=== PATIENT | male | born 2000 | race African-American/Black ===

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

== ENCOUNTER 2020-05-11 14:42 | Emergency (ER) | payer BC ==
[~2020-05-11] VITALS: Ht 182.9 cm; Wt 95.4 kg
[2020-05-11] MEDS ORDERED: DEXAMETHASONE 4 MG TABLET PO ONE (18:45)
[2020-05-11] MEDS ORDERED: ALBUTEROL SULFATE 2.5 MG/3 ML NEBU. NEB ONE (18:45)
--- NOTE | 2020-05-11 18:54 | PHYS DOC ---
Past Medical History Past Medical History: Asthma, Other Additional Past Medical Histor: R shoulder dislocation Past Surgical History: Other Additional Past Surgical Histo: hernia Smoking Status: Current Every Day Smoker Alcohol Use: Occasionally Drug Use: None General Adult EDM: Chief Complaint: SHORTNESS OF BREATH HPI: HPI: Patient is a 19 year old male who presents with 2 days of cough, shortness of air, runny nose, wheezing. He states that his sister is an asthmatic and he took one of her medications that she uses but he does not know what it is. He states that he does have asthma and he does smoke. He also has allergies and was around a dog that he is allergic to couple days prior. He states he was hanging out with 1 girl that he thought maybe he caught Covid from but her test came back negative. Patient denies abdominal pain, nausea, vomiting, diarrhea, fever, headache, dizziness, chest pain, numbness or tingling, focal weakness, vision changes, syncope. Review of Systems: Review of Systems: Constitutional: Denies fever or chills. [] Eyes: Denies change in visual acuity. [] HENT: + nasal congestion or +sore throat. [] Respiratory: + cough or +shortness of breath. [] Cardiovascular: Denies chest pain or edema. [] GI: Denies abdominal pain, nausea, vomiting, bloody stools or diarrhea. [] : Denies dysuria. [] Musculoskeletal: Denies back pain or joint pain. [] Integument: Denies rash. [] Neurologic: Denies headache, focal weakness or sensory changes. [] Endocrine: Denies polyuria or polydipsia. [] Lymphatic: Denies swollen glands. [] Psychiatric: Denies depression or anxiety. [] Heart Score: Risk Factors: Risk Factors: DM, Current or recent (<one month) smoker, HTN, HLP, family history of CAD, obesity. Risk Scores: Score 0 - 3: 2.5% MACE over next 6 weeks - Discharge Home Score 4 - 6: 20.3% MACE over next 6 weeks - Admit for Clinical Observation Score 7 - 10: 72.7% MACE over next 6 weeks - Early Invasive Strategies Current Medications: Current Medications Medications (Trade) Dose Ordered Sig/Tao Start Time Stop Time Status Last Admin Dose Admin Albuterol Sulfate (Ventolin Neb Soln) 2.5 mg 1X ONCE 05/11/20 18:45 05/11/20 18:46 DC Dexamethasone (Decadron) 10 mg 1X ONCE 05/11/20 18:45 05/11/20 18:46 DC Allergies: Allergies: Allergies Coded Allergies Type Severity Reaction Last Updated Verified No Known Drug Allergies 03/29/16 No Physical Exam: PE: Constitutional: Well developed, well nourished, no acute distress, non-toxic appearance. [] HENT: Normocephalic, atraumatic, bilateral external ears normal, oropharynx moist, no oral exudates, nose normal. [] Eyes: PERRLA, EOMI, conjunctiva normal, no discharge. [] Neck: Normal range of motion, no tenderness, supple, no stridor. [] Cardiovascular:Heart rate regular rhythm, no murmur [] Lungs & Thorax: Bilateral inspiratory and expiratory wheezing breath sounds clear to auscultation [] Abdomen: Bowel sounds normal, soft, no tenderness, no masses, no pulsatile masses. [] Skin: Warm, dry, no erythema, no rash. [] Back: No tenderness, no CVA tenderness. [] Extremities: No tenderness, no cyanosis, no clubbing, ROM intact, no edema. [] Neurologic: Alert and oriented X 3, normal motor function, normal sensory function, no focal deficits noted. [] Psychologic: Affect normal, judgement normal, mood normal. [] Current Patient Data: Vital Signs: Vital Signs Date Time Temp Pulse Resp B/P (MAP) Pulse Ox O2 Delivery O2 Flow Rate FiO2 05/11/20 17:22 98.6 95 24 157/80 (105) 95 Room Air 98.6 EKG: EKG: [] Radiology/Procedures: Radiology/Procedures: [] Impression: [facility] [address] [place], [place] [id number] IMAGING REPORT Signed PATIENT: NICOLE BERMEO ACCOUNT: [id number] : 2000 LOCATION: ER AGE: 19 SEX: M EXAM STATUS: REG ER ORD. PHYSICIAN: GABE HUGO APRN REASON: soa PROCEDURE: PORTABLE CHEST 1V EXAMINATION: XR CHEST 1V CLINICAL HISTORY: Shortness of breath EXAM DATE/TIME: 05/11/2020 7:06 PM COMPARISON: None FINDINGS: Lines, Tubes, and Devices: None. Cardiomediastinal Silhouette: Within normal limits. Lungs and Pleura: No evidence of focal airspace consolidation or pleural effusion. Pulmonary vasculature unremarkable. Bones and Soft Tissues: No acute osseous abnormality. IMPRESSION: No evidence of acute cardiopulmonary abnormality. Electronically signed by: Eliel Trevizo DO (05/11/2020 7:17 PM) [facility] DICTATED and SIGNED BY: ELIEL TREVIZO DO DATE: 05/11/20 [id number] 0 Course & Med Decision Making: Course & Med Decision Making Pertinent Labs and Imaging studies reviewed. (See chart for details) COVID-19 CRITERIA: The patient was evaluated during the global COVID-19 pandemic, and that diagnosis was suspected/considered upon their initial presentation. Their evaluation, treatment and testing was consistent with current guidelines for patients who present with complaints or symptoms that may be related to COVID-19. See HPI. Alert and oriented x4. Patient has inspiratory expiratory wheezing throughout all lobes of the lungs. Abdomen soft and nontender. Skin pink warm and dry. Speaks in full complete sentences. Patient is 95% on room air. Throat is pink without exudates or swelling. Afebrile. Patient is given dexamethasone and a breathing treatment in the ED. I we will also test the patient for Covid in the ED. Patient states he is feeling much better. He will be sent home with a Medrol Dosepak, albuterol inhaler and Zyrtec. [] William Disclaimer: William Disclaimer: This electronic medical record was generated, in whole or in part, using a voice recognition dictation system. COVID-19 Patient Risks: Age 65 or older: No Sign of co-morbidity: Yes Exp to person + for COVID: No Exp to PUI: No Travel from affected area: No Lower respiratory symptoms: Yes Fever: No Other: No PPE Use: Full PPE with N95 mask or PAPR: Yes Departure Departure Impression: Primary Impression: Acute asthma flare Qualified Codes: J45.21 - Mild intermittent asthma with (acute) exacerbation Disposition: 01 DC HOME SELF CARE/HOMELESS Condition: STABLE Referrals: NO PCP (PCP) Patient Instructions: Asthma Attacks, Prevention, Asthma Prevention-Brief, Asthma, Adult Additional Instructions: Take medication as prescribed. Try to quit smoking. Drink plenty of fluids. If you begin having severe shortness of breath and the medicines are not helping return to emergency room. You have been tested for or diagnosed with COVID-19. It is an infection caused by a new type of coronavirus. COVID-19 will cause cold-like or mild flu symptoms in most. It can cause more severe symptoms like problems breathing in some. There is no treatment for COVID-19. The body will clear the infection over time. Self-care will help to ease discomfort. Steps to Take: Self-Care Rest as needed. Healthy habits may help you feel better. Steps include: Choose healthy foods including fruits and vegetables. Drink water throughout the day. Get plenty of sleep each night. If you smoke, try to quit. It may ease breathing. Avoid alcohol. Keep Others Healthy The virus can spread to others. Droplets are released every time you sneeze or cough. The droplets can get into the mouth, nose, or eyes of people near you and lead to infection. To lower the chances of spreading COVID-19 to others: Stay at home until your doctor has said it is safe to leave. If you tested positive this will mean staying isolated until both of the following are true: At least 7 days have passed since the start of illness. You are free of fever for at least 72 hours without the use of medicine. During this time: - Avoid public areas, events, or transportation. Do not return to work or school until your doctor has said it is safe to do so. - Call ahead if you need to go to a medical center. Let them know you may have COVID-19. It will help them guide you where to go. They may also ask you to wear a facemask when you come to the office. - If you call for emergency medical services, let them know you may have COVID- 19. While at home: - Try to avoid close contact with others. Stay about 6 feet away. - If possible, spend most of your time in a separate room from others. - Use a face mask if you will be in close contact with others such as sharing a room or vehicle. - Have someone wipe down common surfaces in the home. Use household scene and lighting design lecturer every day on areas like doorknobs, counters, or sinks. - Cough or sneeze into a tissue. Throw the tissue away right after use. If a tissue is not available, cough or sneeze into your elbow. - Wash your hands often. Wash them after sneezing or coughing. Use soap and water and wash for at least 20 seconds. Alcohol based hand sewer pipe cleaner can be used if soap and water is not available. - Do not prepare food for others. Avoid sharing personal items like forks, spoons, or toothbrushes. - Avoid close contact with pets while you are sick. There is no evidence of the virus passing to pets. This is a safety step until more is known about this virus. Isolation can be frustrating. Social interaction can help. Keep in touch with friends and family through phone and tech options. You can still interact with others in yo ur home, just keep a safe distance of about 6 feet. Follow-up: Your doctors office will check in with you to see if there are any changes in your health. You may be asked to keep track of symptoms to share with them. They will also let you know when you are clear to be in public again. Problems to Look Out For: Contact your doctor if your recovery is not going as you expect. Get emergency care if you have problems such as: - Trouble breathing - Nonstop chest pain or pressure - Changes in awareness, confusion, or problems waking - Lips or face have bluish color - Worsening of symptoms If you think you have an emergency, call for emergency medical services right away. As taken from [facility] Cetirizine Hcl (ZYRTEC) 10 Mg Tablet 1 TAB PO DAILY, #30 TAB 0 Refills Prov: GABE HUGO CSR 05/11/20 Methylprednisolone (MEDROL) 4 Mg Tab.ds.pk 1 PKG PO UD, #1 PKG Prov: GABE HUGO CSR 05/11/20 Albuterol Sulfate (PROAIR HFA INHALER) 8.5 Gm Hfa.aer.ad 1 PUFF INH PRN Q6HRS PRN for SHORTNESS OF BREATH, #1 INHALER 0 Refills Prov: GABE HUGO CSR 05/11/20 GABE HUGO CSR May 11, 2020 18:54
--- NOTE | 2020-05-11 19:19 | RAD ---
EXAMINATION: XR CHEST 1V CLINICAL HISTORY: Shortness of breath EXAM DATE/TIME: 05/11/2020 7:06 PM COMPARISON: None FINDINGS: Lines, Tubes, and Devices: None. Cardiomediastinal Silhouette: Within normal limits. Lungs and Pleura: No evidence of focal airspace consolidation or pleural effusion. Pulmonary vasculat ure unremarkable. Bones and Soft Tissues: No acute osseous abnormality. IMPRESSION: No evidence of acute cardiopulmonary abnormality. Electronically signed by: Eliel Tapia DO (05/11/2020 7:17 PM) [facility]
[2020-05-11 19:23] LABS: BASO # 0.1 x10^3/uL (0.0-0.2); BASO % 1 % (0-3); EOS # 1.2 x10^3/uL (0.0-0.7); EOS % 8 % (0-3); HEMATOCRIT 49.1 % (39.0-53.0); HEMOGLOBIN 17.4 g/dL (13.0-17.5); LYMPH # 2.3 x10^3/uL (1.0-4.8); LYMPH % 16 % (24-48); MEAN CORPUSCULAR HEMOGLOBIN 31 pg (25-35); MEAN CORPUSCULAR HGB CONC 35 g/dL (31-37); MEAN CORPUSCULAR VOLUME 88 fL (79-100); MONO # 1.5 x10^3/uL (0.0-1.1); MONO % 11 % (0-9); NEUT # 9.2 x10^3/uL (1.8-7.7); NEUT % 65 % (31-73); PLATELET COUNT 259 x10^3/uL (140-400); RED BLOOD COUNT 5.57 x10^6/uL (4.30-5.70); WHITE BLOOD COUNT 14.3 x10^3/uL (4.0-11.0)
[2020-05-11 19:30] LABS: CALCIUM 9.3 mg/dL (8.5-10.1); CREATININE 1.1 mg/dL (0.7-1.3); GFR 103.3; POTASSIUM 3.9 mmol/L (3.5-5.1)
[2020-05-11] MEDS ORDERED: ALBUTEROL SULFATE 8GM INHALER. INH ONE (19:30)
[2020-05-11 19:36] LABS: ALBUMIN 4.1 g/dL (3.4-5.0); ALBUMIN/GLOBULIN RATIO 0.9 (1.0-1.7); TOTAL BILIRUBIN 0.7 mg/dL (0.2-1.0); TOTAL PROTEIN 8.5 g/dL (6.4-8.2)
[2020-05-11 19:50] LABS: % BANDS 2 % (0-9); % BASOS 1 % (0-3); % EOS 5 % (0-5); % LYMPHS 17 % (24-48); % MONOS 12 % (0-10); % SEGS 63 % (35-66); PLT ESTIMATE ADEQUATE (ADEQUATE)
[2020-05-11] MEDS ORDERED: CETI10TA74 PO (20:15)
[2020-05-11] MEDS ORDERED: ALBU2.5V8 INH (20:15)
[2020-05-11] MEDS ORDERED: METH4TAB2 PO (20:15)
[2020-05-11 20:30] VITALS: BP 135/75
--- NOTE | 2020-05-13 16:27 | NUR ---
IP: Attempted to contact pt concerning COVID results. No answer. Left a voicemail to return the call.
--- NOTE | 2020-05-14 08:54 | NUR ---
IP: Pt called and I gave him the negative COVID results. Pt verbalized understanding.
== END 2020-05-11 20:35 | disposition home or self-care (01) ==
LOC: ER 14:42
DX: J45.21 Mild intermittent asthma with (acute) exacerbation (principal); F17.200 Nicotine dependence, unspecified, uncomplicated; Z20.828 Contact with and (suspected) exposure to other viral communicable diseases
CPT/HCPCS: 36415; 71045; 80053; 85007; 85025; 85379; 99285; C9803; J7613; U0003

== ENCOUNTER 2020-05-28 09:51 | Emergency (ER) | payer BC ==
[~2020-05-28] VITALS: Ht 182.9 cm; Wt 97.7 kg
[~2020-05-28 09:51] MED LIST changes: +ALBU2.5V8 INH; +CETI10TA74 PO; +METH4TAB2 PO
[2020-05-28] MEDS ORDERED: PROPOFOL 10 MG/ML (20ML) VIAL. IV ONE (10:30)
[2020-05-28] MEDS ORDERED: ONDANSETRON PF 4 MG/2 ML VIAL. IVP ONE (10:30)
[2020-05-28] MEDS ORDERED: IV NORMAL SALINE 1000ML BAG 1,000 ML IV ONE (10:30)
--- NOTE | 2020-05-28 10:39 | PHYS DOC ---
Past Medical History Past Medical History: Asthma, Other Additional Past Medical Histor: R shoulder dislocation Past Surgical History: Other Additional Past Surgical Histo: hernia Smoking Status: Current Every Day Smoker Alcohol Use: Occasionally Drug Use: None General Adult EDM: Chief Complaint: SHOULDER INJURY HPI: HPI: Patient is a 19 year old male who presented to ER for evaluation of right shoulder dislocation. Patient has a history of recurrent right shoulder dislocation, this morning he had a an episode of sneeze, then dislocated his right shoulder. Patient denies any numbness or weakness in his right upper extremity at this time. Review of Systems: Review of Systems: Constitutional: Denies fever or chills. [] Eyes: Denies change in visual acuity. [] HENT: Denies nasal congestion or sore throat. [] Respiratory: Denies cough or shortness of breath. [] Cardiovascular: Denies chest pain or edema. [] GI: Denies abdominal pain, nausea, vomiting, bloody stools or diarrhea. [] : Denies dysuria. [] Musculoskeletal: Positive for right shoulder pain Integument: Denies rash. [] Neurologic: Denies headache, focal weakness or sensory changes. [] Endocrine: Denies polyuria or polydipsia. [] Lymphatic: Denies swollen glands. [] Psychiatric: Denies depression or anxiety. [] Heart Score: Risk Factors: Risk Factors: DM, Current or recent (<one month) smoker, HTN, HLP, family history of CAD, obesity. Risk Scores: Score 0 - 3: 2.5% MACE over next 6 weeks - Discharge Home Score 4 - 6: 20.3% MACE over next 6 weeks - Admit for Clinical Observation Score 7 - 10: 72.7% MACE over next 6 weeks - Early Invasive Strategies Current Medications: Current Medications Medications (Trade) Dose Ordered Sig/Tao Start Time Stop Time Status Last Admin Dose Admin Ondansetron HCl (Zofran) 4 mg 1X ONCE 05/28/20 10:30 05/28/20 10:32 DC Propofol (Diprivan) 100 mg 1X ONCE 05/28/20 10:30 05/28/20 10:32 DC Sodium Chloride 1,000 ml @ 1,000 mls/hr 1X ONCE 05/28/20 10:30 05/28/20 11:29 Allergies: Allergies: Allergies Coded Allergies Type Severity Reaction Last Updated Verified No Known Drug Allergies 03/29/16 No Physical Exam: PE: Constitutional: Well developed, well nourished, no acute distress, non-toxic appearance. [] HENT: Normocephalic, atraumatic, bilateral external ears normal, oropharynx moist, no oral exudates, nose normal. [] Eyes: PERRLA, EOMI, conjunctiva normal, no discharge. [] Neck: Normal range of motion, no tenderness, supple, no stridor. [] Cardiovascular:Heart rate regular rhythm, no murmur [] Lungs & Thorax: Bilateral breath sounds clear to auscultation [] Abdomen: Bowel sounds normal, soft, no tenderness, no masses, no pulsatile masses. [] Skin: Warm, dry, no erythema, no rash. [] Back: No tenderness, no CVA tenderness. [] Extremities: Right shoulder is tender to palpation, range of motion limited, deformity consistent with anterior dislocation. Neurologic: Alert and oriented X 3, normal motor function, normal sensory function, no focal deficits noted. [] Psychologic: Affect normal, judgement normal, mood normal. [] Current Patient Data: Vital Signs: Vital Signs Date Time Temp Pulse Resp B/P (MAP) Pulse Ox O2 Delivery O2 Flow Rate FiO2 05/28/20 10:07 98.5 77 18 156/116 (129) 95 Room Air 98.5 EKG: EKG: [] Radiology/Procedures: Radiology/Procedures: [facility] [address] [place] [address] IMAGING REPORT Signed PATIENT: NICOLE BERMEO ACCOUNT: [id number] : 2000 LOCATION: ER AGE: 19 SEX: M EXAM STATUS: REG ER ORD. PHYSICIAN: DEEPTI CRAIN DO REASON: RIGHT SHOULDER DISLOCATION PROCEDURE: SHOULDER 2+V RIGHT XR SHOULDER_RIGHT 2+ VIEWS History: Reason: RIGHT SHOULDER DISLOCATION / Spl. Instructions: / History: Technique: 2 views right shoulder. Comparison: November 07, 2018 Findings: Right anterior inferior glenohumeral dislocation. Irregularity of the inferior glenoid. Impression: 1. Right anterior inferior glenohumeral dislocation. 2. Irregularity of the inferior glenoid, may indicate Bankart lesion. Recommend post reduction radiographs to further assess. Electronically signed by: Zak Boggs DO (05/28/2020 11:04 AM) [id number] DICTATED and SIGNED BY: ZAK BOGGS DO DATE: 05/28/20 [id number] 0 SHOULDER DISLOCATION REDUCTION PROCEDURE: Indication: Joint dislocation Consent: Consent was obtained. Procedure: The pre-reduction exam showed distal perfusion and neurologic function to be normal.. The patient was placed in the appropriate position. IV PROPOFOL WAS GIVEN. Reduction of the right shoulder was performed by traction and rotation Post reduction films were obtained and revealed satisfactory reduction. A post-reduction exam revealed distal perfusion and neurologic function to be normal. The affected area was immobilized with shoulder immobilizer. The patient tolerated the procedure well. Complications: none. [facility] [address] [place] [address] IMAGING REPORT Signed PATIENT: NICOLE BERMEO ACCOUNT: [id number] : 2000 LOCATION: ER AGE: 19 SEX: M EXAM STATUS: REG ER ORD. PHYSICIAN: DEEPTI CRAIN DO REASON: POST REDUCTION OF RIGHT SHOULDER DISLOCATION PROCEDURE: SHOULDER 2+V RIGHT XR SHOULDER_RIGHT 2+ VIEWS History: Reason: POST REDUCTION OF RIGHT SHOULDER DISLOCATION / Spl. Instructions: / History: Technique: 2 views right shoulder. Comparison: May 28, 2020 Findings: Interval reduction right glenohumeral dislocation. Irregularity of the inferior glenoid. Irregularity of the posterior lateral humeral head. Impression: 1. Interval reduction right glenohumeral dislocation. 2. Irregularity of the inferior glenoid and posterior lateral humeral head, may indicate Bankart and Hill-Sachs lesions. Electronically signed by: Zak Boggs DO (05/28/2020 11:15 AM) [id number] DICTATED and SIGNED BY: ZAK BOGGS DO DATE: 05/28/20 [id number] 0 Course & Med Decision Making: Course & Med Decision Making Pertinent Labs and Imaging studies reviewed. (See chart for details) [] Dragon Disclaimer: Dragon Disclaimer: This electronic medical record was generated, in whole or in part, using a voice recognition dictation system. Departure Departure Impression: Primary Impression: Dislocation of right shoulder joint Disposition: HOME SELF CARE/HOMELESS Condition: IMPROVED Referrals: NO PCP (PCP) DWAIN MELTON MD PLEASE CALL THIS ORTHOPEDIC SURGEON FOR FOLLOW UP. Patient Instructions: Sedation, Moderate, Adult, Shoulder Dislocation Procedural Sedation Proc Sed Indication: Right shoulder dislocation Consent: I have discussed with the patient and/or the patient workforce services representative the indication, alternatives, and the possible risks and /or complications of the planned procedure and the anesthesia methods. The patient and/or patient workforce services representative appear to understand and agree to proceed. Pre-Sedation Documentation and Exam: IN CHART Airway Assessment: normal. Prior History of Anesthesia Complications: none. ASA Classification: 1 Sedation/ Anesthesia Plan: MODERATE SEDATION WITH PROPOFOL IV Medications Used: see nursing notes. Monitoring and Safety: The patient was placed on a pvc monitor and vital signs, pulse oximetry and level of consciousness were continuously evaluated throughout the procedure. The patient was closely monitored until recovery from the medications was complete and the patient had returned to baseline status. Respiratory therapy was on standby at all times during the procedure. (The following sections must be completed) Post-Sedation Vital Signs: [EDM.VS] Post-Sedation Exam: BACK TO BASELINE, AWAKE, ALERT, ORIENTED. Complications: none. Vital Signs Vital Signs Date Time Temp Pulse Resp B/P (MAP) Pulse Ox O2 Delivery O2 Flow Rate FiO2 05/28/20 10:47 98.9 78 22 159/100 2.0 97.9 81 22 05/28/20 10:07 95 Room Air DEEPTI CRAIN DO May 28, 2020 10:39
[2020-05-28 10:47] VITALS: BP 159/100
--- NOTE | 2020-05-28 11:07 | RAD ---
XR SHOULDER_RIGHT 2+ VIEWS History: Reason: RIGHT SHOULDER DISLOCATION / Spl. Instructions: / History: Technique: 2 views right shoulder. Comparison: November 07, 2018 Findings: Right anterior inferior glenohumeral dislocation. Irregularity of the inferior glenoid. Impression: 1. Right anterior inferior glenohumeral dislocation. 2. Irregularity of the inferior glenoid, may indicate Bankart lesion. Recommend post reduction radio graphs to further assess. Electronically signed by: Zak Boggs DO (05/28/2020 11:04 AM) [id number]
--- NOTE | 2020-05-28 11:17 | RAD ---
XR SHOULDER_RIGHT 2+ VIEWS History: Reason: POST REDUCTION OF RIGHT SHOULDER DISLOCATION / Spl. Instructions: / History: Technique: 2 views right shoulder. Comparison: May 28, 2020 Findings: Interval reduction right glenohumeral dislocation. Irregularity of the inferior glenoid. Irregularity of the posterior lateral humeral head. Impression: 1. Interval reduction right glenohumeral dislocation. 2. Irregularity of the inferior glenoid and posterior lateral humeral head, may indicate Bankart and Hill-Sachs lesions. Electronically signed by: Zak Boggs DO (05/28/2020 11:15 AM) [id number]
== END 2020-05-28 11:56 | disposition home or self-care (01) ==
LOC: ER 09:51
DX: S43.084A Other dislocation of right shoulder joint, initial encounter (principal); J45.909 Unspecified asthma, uncomplicated; F17.200 Nicotine dependence, unspecified, uncomplicated; Z98.890 Other specified postprocedural states; X58.XXXA Exposure to other specified factors, initial encounter; Y93.89 Activity, other specified; Y92.89 Other specified places as the place of occurrence of the external cause; Y99.8 Other external cause status
CPT/HCPCS: 23650; 73030; 96361; 96374; 99285; J2405; J2704; J7030

== ENCOUNTER 2020-07-09 20:02 | Emergency (ER) | payer BC ==
[~2020-07-09] VITALS: Ht 182.9 cm; Wt 95.9 kg
[2020-07-09] MEDS ORDERED: IBUPROFEN 400 MG TABLET. PO ONE (20:30)
--- NOTE | 2020-07-09 20:52 | RAD ---
Study: XR CHEST 1V Indication: Cough. Comparison: 05/11/2020 Findings: The cardiomediastinal silhouette and edel are within normal limits. No localized airspace opacity, pl eural effusion or pneumothorax. Impression: No acute radiographic abnormality of the chest. No relevant change from the 05/11/2020 comparison. Electronically signed by: CB HAGAN MD (07/09/2020 8:50 PM) [facility]
[2020-07-09] MEDS ORDERED: BENZ100C PO (20:59)
[2020-07-09] MEDS ORDERED: PRED20TA PO (20:59)
--- NOTE | 2020-07-09 21:00 | PHYS DOC ---
Past Medical History Past Medical History: Asthma, Other Additional Past Medical Histor: R shoulder dislocation Past Surgical History: Other Additional Past Surgical Histo: hernia Smoking Status: Current Every Day Smoker Alcohol Use: Occasionally Drug Use: None Adult General Chief Complaint Chief Complaint: COUGH HPI HPI Patient is a 20 year old male with no past medical history of asthma presents emergency department complaint of new onset of cough and shortness of breath. Patient states that over the last week he has been noticing worsening mild intermittent nonproductive cough. Patient states this visit she was mild sensation of shortness of breath that he states is similar to his prior episodes of asthma exacerbation. Has been using his inhaler intermittently but does not increase his dosing. Patient states for the last 24 hours developed pain in the right posterior back. Denies any dizziness, lightheadedness, fever, chills. Review of Systems Review of Systems Constitutional: Denies fever or chills [] Eyes: Denies change in visual acuity, redness, or eye pain [] HENT: Denies nasal congestion or sore throat [] Respiratory: Denies cough or shortness of breath [] Cardiovascular: No additional information not addressed in HPI [] GI: Denies abdominal pain, nausea, vomiting, bloody stools or diarrhea [] : Denies dysuria or hematuria [] Musculoskeletal: Denies back pain or joint pain [] Integument: Denies rash or skin lesions [] Neurologic: Denies headache, focal weakness or sensory changes [] Endocrine: Denies polyuria or polydipsia [] All other systems were reviewed and found to be within normal limits, except as documented in this note. Current Medications Current Medications Current Medications Medications (Trade) Dose Ordered Sig/Tao Start Time Stop Time Status Last Admin Dose Admin Ibuprofen (Motrin) 800 mg 1X ONCE 07/09/20 20:30 07/09/20 20:31 DC 07/09/20 20:36 800 MG Allergies Allergies Allergies Coded Allergies Type Severity Reaction Last Updated Verified No Known Drug Allergies 03/29/16 No Physical Exam Physical Exam Constitutional: Well developed, well nourished, no acute distress, non-toxic appearance. [] HENT: Normocephalic, atraumatic, bilateral external ears normal, oropharynx moist, no oral exudates, nose normal. [] Eyes: PERRLA, EOMI, conjunctiva normal, no discharge. [] Neck: Normal range of motion, no tenderness, supple, no stridor. [] Cardiovascular:Heart rate regular rhythm, no murmur [] Lungs & Thorax: Bilateral breath sounds clear to auscultation [] Abdomen: Bowel sounds normal, soft, no tenderness, no masses, no pulsatile masses. [] Skin: Warm, dry, no erythema, no rash. [] Back: No tenderness, no CVA tenderness. [] Extremities: No tenderness, no cyanosis, no clubbing, ROM intact, no edema. [] Neurologic: Alert and oriented X 3, normal motor function, normal sensory function, no focal deficits noted. [] Psychologic: Affect normal, judgement normal, mood normal. [] Current Patient Data Vital Signs Vital Signs Date Time Temp Pulse Resp B/P (MAP) Pulse Ox O2 Delivery O2 Flow Rate FiO2 07/09/20 20:07 98.2 84 16 142/82 (102) 96 Room Air 98.2 EKG EKG [] Radiology/Procedures Radiology/Procedures Study: XR CHEST 1V Indication: Cough. Comparison: 05/11/2020 Findings: The cardiomediastinal silhouette and edel are within normal limits. No localized airspace opacity, pleural effusion or pneumothorax. Impression: No acute radiographic abnormality of the chest. No relevant change from the 05/11/2020 comparison. Electronically signed by: CB HAGAN MD (07/09/2020 8:50 PM) [facility] Course & Med Decision Making Course & Med Decision Making Pertinent Labs and Imaging studies reviewed. (See chart for details) 20-year-old male presented emergency department complaining of cough and shortness of breath or any significant findings on exam to raise concern for an acute coronary syndrome. Chest x-ray was obtained without any significant changes. At this time I suspect the patient has having a mild intercostal muscle strain and mild viral infection. At this time will discharge patient home Dragon Disclaimer Dragon Disclaimer This electronic medical record was generated, in whole or in part, using a voice recognition dictation system. Departure Departure Impression: Primary Impression: Cough Disposition: 01 DC HOME SELF CARE/HOMELESS Condition: GOOD Referrals: NO PCP (PCP) Patient Instructions: Cough, Adult Additional Instructions: EMERGENCY DEPARTMENT GENERAL DISCHARGE INSTRUCTIONS Thank you for coming to [facility] Emergency Department (ED) today and trusting us with you care. We trust that you had a positive experience in our Emergency Department. If you wish to speak to the department management, you may call the Director at [phone]. YOUR FOLLOW UP INSTRUCTIONS ARE FOLLOWS: 1. Do you have a private Doctor? If you do not have a private doctor, please ask for a resource list of physicians or clinics that may be able to assist you with follow up care. 2. The Emergency Physicain has interpreted your x-rays. The X-Ray specialist will also review them. If there is a change in the findings, you will be notified in 48 hours when at all possible. 3. A lab test or culture has been done, your results will be reviewed and you will be notified if you need a change in treatment. ADDITIONAL INSTRUCTIONS AND INFORMATION: 1. Your care today has been supervised by a physician who is specially trained in emergency care. Many problems require more than one evaluation for a complete diagnosis and treatment. We recommend that you schedule your follow up appointment as recommended to ensure complete treatment of you illness or injury. If you are unable to obtain follow up care and continue to have a problem, or if your condition worsens, we recommend that you return to the ED. 2. We are not able to safely determine your condition over the phone nor are we able to give sound medical advice over the phone. For these safety reasons, if you call for medical advice we will ask you to come to the ED for further evaluation. 3. If you have any questions regarding these discharge instructions please call the ED at [phone]. SAFETY INFORMATION: In the interest of safety, wellness, and injury prevention; we encourage you to wear your sealbelt, if you smoke; quite smoking, and we encourage family to use a protective helmet for bicycling and other sporting events that present an increased risk for head injury. IF YOUR SYMPTOMS WORSEN OR NEW SYMPTOMS DEVELOP, OR YOU HAVE CONCERNS ABOUT YOUR CONDITION; OR IF YOUR CONDITION WORSENS WHILE YOU ARE WAITING FOR YOUR FOLLOW UP APPOINTMENT; EITHER CONTACT YOUR PRIMARY CARE DOCTOR, THE PHYSICIAN WHOSE NAME AND NUMBER YOU WERE GIVEN, OR RETURN TO THE ED IMMEDIATELY. Scripts Benzonatate (TESSALON PERLE) 100 Mg Capsule 1 CAP PO TID for cough, #21 CAP Prov: ROMULO VALLES MD 07/09/20 Prednisone (PREDNISONE) 20 Mg Tablet 1 TAB PO DAILY, #5 TAB Prov: ROMULO VALLES MD 07/09/20 ROMULO VALLES MD Jul 09, 2020 21:00
[2020-07-09 21:08] VITALS: BP 118/67
== END 2020-07-09 21:09 | disposition home or self-care (01) ==
LOC: ER 20:02
DX: R05 Cough (principal); R06.02 Shortness of breath; J45.909 Unspecified asthma, uncomplicated; F17.200 Nicotine dependence, unspecified, uncomplicated
CPT/HCPCS: 71045; 99283

== ENCOUNTER 2021-04-21 01:10 | Emergency (ER) | payer SELFPAY ==
[~2021-04-21 01:10] MED LIST changes: +BENZ100C PO; +PRED20TA PO
== END 2021-04-21 02:41 | disposition left against medical advice (07) ==
LOC: ER 01:10
DX: S49.90XA Unspecified injury of shoulder and upper arm, unspecified arm, initial encounter (principal); Z53.21 Procedure and treatment not carried out due to patient leaving prior to being seen by health care provider; X58.XXXA Exposure to other specified factors, initial encounter; Y93.89 Activity, other specified; Y92.89 Other specified places as the place of occurrence of the external cause; Y99.8 Other external cause status